=== PATIENT | male | born 1990 | race Caucasian/White ===

== ENCOUNTER 2016-12-25 18:05 | Emergency (ER) | payer OTHER ==
--- NOTE | 2016-12-25 19:44 | EDM.PDOC ---
ED HPI GENERAL MEDICAL PROBLEM - General Chief Complaint: ENT Problem Stated Complaint: SOMETHING STUCK IN HIS THROAT Time Seen by Provider: 12/25/16 19:34 - History of Present Illness INITIAL COMMENTS - FREE TEXT/NARRATIVE: HISTORY AND PHYSICAL: History of present illness: The patient is a healthy 26-year-old male who presents with complaints of feeling like a piece of meat is stuck in the back of his throat as he was eating spareribs this evening. The patient says that he can see the area of food which is back in the posterior right back of his throat. He is not choking or coughing and has had no trouble swallowing or handling his saliva. He says he could see the piece of food but just couldn't loosen it and swallow it. He says he had no trouble with his breathing but did have some gagging at home. While in the emergency department waiting to be seen he went to the bathroom and said he had a very hard cough and the food now is not there and he does not have the foreign body sensation. He feels back to his baseline. Patient has never had an endoscopy nor any esophageal problems in the past. Review of systems: As per history of present illness and below otherwise all systems reviewed and negative. Past medical history: As per history of present illness and as reviewed below otherwise noncontributory. Surgical history: As per history of present illness and as reviewed below otherwise noncontributory. Social history: No reported history of drug or alcohol abuse. Family history: As per history of present illness and as reviewed below otherwise noncontributory. Physical exam: Gen.: Well-developed well-nourished mildly overweight male who is nontoxic and speaking clearly and easily in the ED. Vital signs of been reviewed by me. HEENT: Atraumatic, normocephalic, pupils reactive, negative for conjunctival pallor or scleral icterus, mucous membranes moist, throat clear, neck supple, nontender, trachea midline. There is no visible foreign body in the oropharynx and the airway is clear without any swelling or oropharyngeal edema. Lungs: Clear to auscultation, breath sounds equal bilaterally, chest nontender. There is no wheezing or stridor Heart: S1S2, regular rate and rhythm no overt murmurs Abdomen: Soft, nondistended, nontender. NABS. Pelvis: Deferred Genitourinary: Deferred. Rectal: Deferred. Extremities: Atraumatic, negative for cords or calf pain. Neurovascular unremarkable. Neuro: Awake, alert, oriented. Cranial nerves II through XII unremarkable. Cerebellum unremarkable. Motor and sensory unremarkable throughout. Exam nonfocal. Diagnostics: [] Therapeutics: As the patient currently feels completely asymptomatic I will not give him any medications. He says he has no pain in the area. We will give him a glass of water and if he is able to tolerate I will plan on discharge home Impression: Oral foreign body sensation resolved prior to evaluation Definitive disposition and diagnosis as appropriate pending reevaluation and review of above. Throat Pain Score (Numeric/FACES): 4 - Related Data Allergies Allergy/AdvReac Type Severity Reaction Status Date / Time acetaminophen [From Lortab] Allergy Nausea Verified 12/25/16 18:46 Home Meds: Home Meds . [No Known Home Meds] 04/09/14 [History] Past Medical History - Past Health History Medical/Surgical History: Denies Medical/Surgical History Social & Family History - Tobacco Use Smoking Status *Q: Never Smoker Second Hand Smoke Exposure: No - Caffeine Use Caffeine Use: Reports: None - Alcohol Use Days Per Week of Alcohol Use: 0 - Recreational Drug Use Recreational Drug Use: No ED ROS GENERAL - Review of Systems Review Of Systems: ROS reveals no pertinent complaints other than HPI. ED EXAM, GENERAL - Physical Exam Exam: See Below (See dictation) Course - Vital Signs Last Recorded V/S: Last Vital Signs Temp 36.8 C 12/25/16 18:50 Pulse 85 12/25/16 18:50 Resp 18 12/25/16 18:50 BP 131/68 12/25/16 18:50 Pulse Ox 94 L 12/25/16 18:50 Departure - Departure Time of Disposition: 19:43 Disposition: Home, Self-Care 01 Condition: Good Clinical Impression: Foreign body sensation in throat - Discharge Information Referrals: PCP,None [Primary Care Provider] - Additional Instructions: The following information is given to patients seen in the emergency department who are being discharged to home. This information is to outline your options for follow-up care. We provide all patients seen in our emergency department with a follow-up referral. The need for follow-up, as well as the timing and circumstances, are variable depending upon the specifics of your emergency department visit. If you don't have a primary care physician on staff, we will provide you with a referral. We always advise you to contact your personal physician following an emergency department visit to inform them of the circumstance of the visit and for follow-up with them and/or the need for any referrals to a consulting specialist. The emergency department will also refer you to a specialist when appropriate. This referral assures that you have the opportunity for followup care with a specialist. All of these measure are taken in an effort to provide you with optimal care, which includes your followup. Under all circumstances we always encourage you to contact your private physician who remains a resource for coordinating your care. When calling for followup care, please make the office aware that this follow-up is from your recent emergency room visit. If for any reason you are refused follow-up, please contact the [facility] emergency department at and ask to speak to the emergency department charge nurse. [facility] Primary care- Internal Medicine and Family [address] [address] Please chew your food thoroughly and try to eat a soft diet for the next 12-24 hours. Return to ER as needed and as discussed. Please follow-up with your provider or one of our clinic providers in a daily for reevaluation and further care as indicated.
[2016-12-26 03:24] VITALS: BP 127/65
== END 2016-12-25 20:22 | disposition home or self-care (01) ==
LOC: MW.ED 18:05
DX: R09.89 Other specified symptoms and signs involving the circulatory and respiratory systems (principal); Z88.6 Allergy status to analgesic agent
CPT/HCPCS: 99283